=== PATIENT | male | born 1930 | race Asian ===

== ENCOUNTER 2018-07-06 12:49 | Inpatient (IN) | payer OTHER, MEDICAID ==
[~2018-07-06] VITALS: Ht 172.7 cm; Wt 62.6 kg
[~2018-07-06 12:49] MED LIST: ALPR0.25 PO; BISA5TAB10 PO; DOCU100T9 PO; ESOM40CA PO; PSYL3.4P6 PO; SUCR1TAB PO; ZOLP10TA2 PO
[2018-07-06] MEDS ORDERED: NACL 0.9% 1,000 ML IV ONE (12:59)
[2018-07-06] MEDS ORDERED: ONDANSETRON HCL 4 MG/2 ML VIAL IVP ONE (13:00)
[2018-07-06] MEDS ORDERED: MORPHINE 4 MG/ML INJ. SYRINGE IVP ONE (13:00)
[2018-07-06 13:01] VITALS: BP_SYST 100
[2018-07-06 13:32] LABS: BASOPHILS % (AUTO) 0.7 % (0.0-2.0); EOSINOPHILS % (AUTO) 0.7 % (0.0-4.0); HEMATOCRIT 39.9 % (36-54); HEMOGLOBIN 13.3 g/dL (14.0-18.0); LYMPHOCYTES # (AUTO) 1.5 K/uL (1.0-5.5); LYMPHOCYTES % (AUTO) 27.9 % (20.5-51.5); MEAN CORPUSCULAR HEMOGLOBIN 32 pg (27-31); MEAN CORPUSCULAR HGB CONC 33 % (32-36); MEAN CORPUSCULAR VOLUME 95 fL (79.0-98.0); MONOCYTES # (AUTO) 0.4 K/uL (0.0-1.0); MONOCYTES % (AUTO) 8.1 % (1.7-9.3); NEUTROPHILS # (AUTO) 3.3 K/uL (1.8-7.7); NEUTROPHILS % (AUTO) 62.6 % (40.0-70.0); PLATELET COUNT (AUTO) 255 K/uL (130-430); RED BLOOD CELL COUNT(AUTO) 4.22 MIL/uL (4.2-6.2); RED CELL DISTRIBUTION WIDTH 14.3 % (9.0-15.0); WHITE BLOOD COUNT (AUTO) 5.3 K/uL (4.8-10.8)
[2018-07-06 13:44] LABS: ANION GAP 8 (5-15); CALCIUM 8.9 mg/dL (8.4-11.0); CHLORIDE 107 mmol/L (98-107); CREATININE 1.02 mg/dL (0.55-1.30); GLUCOSE 126 mg/dL (70-99); POTASSIUM 4.6 mmol/L (3.5-5.1); SODIUM SERUM 141 mmol/L (136-145); UREA NITROGEN, BLOOD 23 mg/dL (8-21)
--- NOTE | 2018-07-06 13:47 | NUR ---
Placed in room 03 . Placed on groundwater monitoring technician, blood pressure machine and pulse oximeter. To gown for exam. Side rails up.
[2018-07-06 13:48] LABS: INR 0.9 (0.80-1.20); PROTHROMBIN TIME 9.3 SECS (9.5-12.5)
[2018-07-06 13:51] LABS: ALANINE AMINOTRANSFERASE 25 U/L (12-78); ALBUMIN 3.4 g/dL (3.4-4.8); AMYLASE 108 U/L (0-100); ASPARTATE AMINOTRANSFERASE 27 U/L (10-37); LIPASE 261 U/L (73-393); TOTAL BILIRUBIN 0.3 mg/dL (0.0-1.0)
--- NOTE | 2018-07-06 14:00 | NUR ---
PATIENT IN ER BED 3. PATIENTS AND SON AT BEDSIDE. PER SON PATIENT HAD EXTREME PAIN TO THE LOWER RIGHT ABDOMEN AREA LAST NIGHT AND NOW IT HAS BECOME BETTER. PATIENT IS AAOX4. NO ACUTE SIGNS OF DISTRESS. PATIENT LOOKS CONTENT. ALL NEEDS AT THIS TIME. AWAITING FOR URINE SAMPLE.
[2018-07-06 16:13] LABS: BILIRUBIN,URINE NEGATIVE (NEGATIVE); BLOOD, URINE NEGATIVE (NEGATIVE); CLARITY/URINE CLEAR (CLEAR); COLOR,URINE YELLOW (YELLOW); GLUCOSE,URINE NEGATIVE (NEGATIVE); KETONES,URINE NEGATIVE (NEGATIVE); LEUKOCYTE ESTERASE ,URINE NEGATIVE (NEGATIVE); NITRITE, URINE NEGATIVE (NEGATIVE); PROTEIN URINE NEGATIVE (NEGATIVE); UROBILINOGEN,URINE 0.2 (0.2-1.0)
--- NOTE | 2018-07-06 17:05 | NUR ---
PATIENT RESTING IN BED COMFORTABLE. NO ACUTE SIGNS OF DISTRESS. DENIES PAIN AT THIS TIME. CONTINUE TO MONITOR.
[2018-07-06] MEDS ORDERED: cefTRIAXone 1 GM IVPB PREMIX 50 ML IV ONE (17:30)
[2018-07-06] MEDS ORDERED: RANI-362 PO (18:45)
[2018-07-06] MEDS ORDERED: LUBI24CA5 PO (18:46)
[2018-07-06] MEDS ORDERED: METO-290 PO (18:47)
[2018-07-06] MEDS ORDERED: DEXL60CA4 PO (18:48)
[2018-07-06] MEDS ORDERED: PREG75CA PO (18:49)
[2018-07-06] MEDS ORDERED: ZOLP10TA2 PO (18:49)
--- NOTE | 2018-07-06 19:00 | NUR ---
Patient will be admitted to care of dr. mathis. Admitted to med-surg unit. Will go to room 105A. Belongings list completed. Summary report printed. Report will be given at bedside to HILARIA Solano.
--- NOTE | 2018-07-06 19:03 | NUR ---
ADMIT NOTE Received pt from ER to the floor with a diagnosis of pneumonia, pancreatitis. Admission process initiated. patient oriented to pain management, safety and call light-teach back done.
[2018-07-06 19:16] VITALS: BP_SYST 143
[2018-07-06 20:18] VITALS: BP_SYST 135
--- NOTE | 2018-07-06 20:34 | NUR ---
PATIENT AWAKE ALERT assist out of bed to REST ROOM ambulates FALL MEASURES IMPLEMENTED CALL FIELD USE EXPLAINED TEACH BACK METHOD DONE patient verbalize understanding , FAMILY HERE AT THE BEDSIDE assist as needed continue to monitor .
[2018-07-07] MEDS ORDERED: ZOLPIDEM TARTRATE 5 MG TABLET PO PRN
[2018-07-07 00:05] VITALS: BP_SYST 107
[2018-07-07] MEDS ORDERED: ACETAMINOPHEN 325 MG TABLET PO PRN (00:15)
[2018-07-07] MEDS ORDERED: LevALBUTEROL HCL 1.25 MG/0.5 ML *CONC.* VIAL.NEB (XOPENEX CONC.) INH PRN (00:15)
[2018-07-07] MEDS ORDERED: AZITHROMYCIN 500 MG/VIAL (ZITHROMAX) IV ONE (00:41)
[2018-07-07] MEDS ORDERED: KCL 20 mEq in D5/0.45NS 1000mL 1,000 ML IV ONE (00:41)
[2018-07-07] MEDS: KCL 20 mEq in D5/0.45NS 1000mL 1,000 ML IV SCH ×2 (00:54→17:15)
[2018-07-07] MEDS: AZITHROMYCIN 500 MG in NS 250 ML IV SCH ×2 (00:55→23:11)
--- NOTE | 2018-07-07 02:29 | NUR ---
ZITHROMAX 500 MG IVPB ADMINISTER ORDERED NO S/SX OF ADVERSE REACTION NO COMPLAINTS MADE .
--- NOTE | 2018-07-07 02:32 | NUR ---
NEW IV RE START 20 GAUGE RIGHT F/A , TOLERATED .
[2018-07-07 04:19] VITALS: BP_SYST 107
--- NOTE | 2018-07-07 04:26 | NUR ---
PATIENT AWAKE ASSIST OUT OF BED TO REST ROOM FALL MEASURES EFFECTIVE PATIENT AMBULATES WITH ASSIST / .
[2018-07-07] MEDS: METOCLOPRAMIDE HCL 10 MG TABLET PO SCH ×3 (06:10→17:14)
[2018-07-07] MEDS: LevALBUTEROL HCL 1.25 MG/0.5 ML *CONC.* VIAL.NEB (XOPENEX CONC.) INH SCH ×3 (07:19→19:46)
[2018-07-07 08:00] VITALS: BP_SYST 129
--- NOTE | 2018-07-07 08:00 | NUR ---
RN OPENING NOTE PATIENT IS RESTING IN BED, ALERT ORIENTED, DENIES PAIN OR DISCOMFORT. , PATIENT WAS ASSESSED, VITAL SIGNS ARE STABLE. WILL PASS THE MED FOR THE PATIENT. CALL LIGHT WITHIN REACH AND BED AT LOW POSITION.
[2018-07-07] MEDS: SUCRALFATE 1 GM TABLET PO SCH ×2 (09:12→21:21)
[2018-07-07] MEDS: ALPRAZolam 0.25 MG TABLET PO SCH (09:12)
[2018-07-07] MEDS: LUBIPROSTONE 24 MCG CAPSULE PO SCH (09:12)
[2018-07-07] MEDS: BISACODYL 5 MG TABLET.DR (DULCOLAX) PO SCH (09:12)
[2018-07-07] MEDS: PREGABALIN 75 MG CAPSULE (LYRICA) PO SCH ×2 (09:12→21:21)
[2018-07-07] MEDS: FAMOTIDINE 20 MG TABLET PO SCH ×2 (09:12→21:21)
[2018-07-07] MEDS: PSYLLIUM HUSK 1 PKT PACKET PO SCH (09:13)
[2018-07-07] MEDS: DOCUSATE SODIUM 100 MG CAPSULE PO SCH (09:13)
[2018-07-07] MEDS: ENOXAPARIN SODIUM 40 MG/0.4 ML SYRINGE SUBCUT SCH (09:14)
--- NOTE | 2018-07-07 10:00 | NUR ---
RN NOTE PATIENT WAS GIVEN HIS MEDIATIONS. PATIENT TOLERATED VERY WILL , WILL CONTINUE TO MONITOR.
[2018-07-07 11:07] VITALS: BP_SYST 89
--- NOTE | 2018-07-07 12:00 | NUR ---
RN NOTE PATIENT FAMILY IS BY BEDSIDE, PATIENT DENIES PAIN OR DISCOMFORT. PATIENT'S; BLOOD SUGAR WAS MEASURED TO BE. 147MG/DL PATIENT GOT NO COVERAGE. PATIENT AND FAMILY WERE EDUCATED ABOUT FALL PREVENTION. FAMILY MEMBERS AND PATIENT WAS EDUCATED ABOUT THE DISEASE PROCESS. THEY VERBALIZED UNDERSTANDING. WILL CONTINUE TO MONITOR.
--- NOTE | 2018-07-07 14:00 | NUR ---
RN NOTE PATIENT IS RESTING IN BED, SLEEPING WILL CONTINUE TO MONITOR.
[2018-07-07 16:00] VITALS: BP_SYST 131
--- NOTE | 2018-07-07 16:00 | NUR ---
RN NOTE PATIENT IS RESTING IN BED, PATIENT WAS HELPED TO THE BATHROOM WHERE HE VOIDED, PATIENT DENIES PAIN OR DISCOMFORT. WILL CONTINUE TO MONITOR.
[2018-07-07] MEDS: cefTRIAXone 1 GM in D5W 50 ML IV SCH (17:16)
--- NOTE | 2018-07-07 18:36 | NUR ---
RN CLOSING NOTE PATIENT IS RESTING IN BED, WAS SERVED HIS DINNER AND HELPED AMBULATED TO THE BATHROOM, PATIENT IS CURRENTLY EATING HIS DINNER, DENIES PAIN OR DISCOMFORT, BED AT LOW POSITION, CALL LIGHT WITHIN REACH, BED ALARM IS ON, WILL ENDORSE TO NEXT SHIFT.
[2018-07-07 19:56] VITALS: BP_SYST 136
--- NOTE | 2018-07-07 20:02 | NUR ---
PATIENT AWAKE ALERT sitting up in bed assist encourage position change on room air 02 SAT 96 % skin dry warm chest movement symmetrical bed to low position / .
[2018-07-07] MEDS ORDERED: ZOLPIDEM TARTRATE 5 MG TABLET PO SCH (21:00)
--- NOTE | 2018-07-07 21:59 | NUR ---
LYRICA 75 MG PO administer for NERVE pain as ordered , HISTORY of NEUROPATHY .
--- NOTE | 2018-07-07 22:04 | NUR ---
AMBIEN 10 MG PO administer for sleep aide per patient Request , patient resting .
--- NOTE | 2018-07-08 00:38 | NUR ---
PATIENT AWAKE ASSIST OUT OF BED TO REST ROOM ambulates with assist fall measures implemented no SOB noted .
[2018-07-08 00:42] VITALS: BP_SYST 115
[2018-07-08] MEDS: METOCLOPRAMIDE HCL 10 MG TABLET PO SCH ×3 (06:07→17:00)
[2018-07-08 06:25] LABS: BASOPHILS % (AUTO) 0.4 % (0.0-2.0); EOSINOPHILS # (AUTO) 0.1 K/uL (0.0-0.4); HEMATOCRIT 35.1 % (36-54); HEMOGLOBIN 11.6 g/dL (14.0-18.0); LYMPHOCYTES # (AUTO) 1.5 K/uL (1.0-5.5); LYMPHOCYTES % (AUTO) 35.1 % (20.5-51.5); MEAN CORPUSCULAR HEMOGLOBIN 31 pg (27-31); MEAN CORPUSCULAR HGB CONC 33 % (32-36); MEAN CORPUSCULAR VOLUME 95 fL (79.0-98.0); MONOCYTES # (AUTO) 0.6 K/uL (0.0-1.0); MONOCYTES % (AUTO) 13.7 % (1.7-9.3); NEUTROPHILS # (AUTO) 2.1 K/uL (1.8-7.7); NEUTROPHILS % (AUTO) 48.8 % (40.0-70.0); PLATELET COUNT (AUTO) 216 K/uL (130-430); RED BLOOD CELL COUNT(AUTO) 3.72 MIL/uL (4.2-6.2); RED CELL DISTRIBUTION WIDTH 13.8 % (9.0-15.0); WHITE BLOOD COUNT (AUTO) 4.3 K/uL (4.8-10.8)
[2018-07-08 06:27] LABS: AMYLASE 135 U/L (0-100); ANION GAP 4 (5-15); CALCIUM 9.2 mg/dL (8.4-11.0); CHLORIDE 111 mmol/L (98-107); GLUCOSE 105 mg/dL (70-99); POTASSIUM 4.5 mmol/L (3.5-5.1); SODIUM SERUM 146 mmol/L (136-145); UREA NITROGEN, BLOOD 14 mg/dL (8-21)
[2018-07-08 07:04] LABS: LIPASE 417 U/L (73-393)
--- NOTE | 2018-07-08 07:27 | NUR ---
Opening Note patient resting in bed, eyes closed, breathing unlabored and symmetrical, IV fluids infusing, no signs of distress, safety precautions in place, call light and bedside table left within reach, room close to station, will continue to monitor
[2018-07-08] MEDS: LevALBUTEROL HCL 1.25 MG/0.5 ML *CONC.* VIAL.NEB (XOPENEX CONC.) INH SCH ×2 (07:38→22:47)
[2018-07-08 08:05] VITALS: BP_SYST 124
[2018-07-08] MEDS: LUBIPROSTONE 24 MCG CAPSULE PO SCH (08:31)
[2018-07-08] MEDS: BISACODYL 5 MG TABLET.DR (DULCOLAX) PO SCH (08:31)
[2018-07-08] MEDS: ALPRAZolam 0.25 MG TABLET PO SCH (08:31)
[2018-07-08] MEDS: PREGABALIN 75 MG CAPSULE (LYRICA) PO SCH ×2 (08:31→21:06)
[2018-07-08] MEDS: FAMOTIDINE 20 MG TABLET PO SCH ×2 (08:31→21:06)
[2018-07-08] MEDS: SUCRALFATE 1 GM TABLET PO SCH ×2 (08:31→21:06)
[2018-07-08] MEDS: DOCUSATE SODIUM 100 MG CAPSULE PO SCH (08:32)
[2018-07-08] MEDS: ENOXAPARIN SODIUM 40 MG/0.4 ML SYRINGE SUBCUT SCH (08:33)
--- NOTE | 2018-07-08 08:35 | NUR ---
Medication educated patient regarding meds, verbalized understanding, tolerated well by mouth, complaining of mild pain on abdomen, educated him on tylenol for pain management, verbalized understanding, does not want pain meds at this time, educated patient on use of call light for assistance, verbalized understanding, call light and bedside table left within reach, will continue to monitor
[2018-07-08] MEDS: PSYLLIUM HUSK 1 PKT PACKET PO SCH (08:37)
[2018-07-08] MEDS: KCL 20 mEq in D5/0.45NS 1000mL 1,000 ML IV SCH ×2 (10:20→14:01)
--- NOTE | 2018-07-08 10:30 | NUR ---
Ge Chacko at Bedside educated him on plan of care, verbalized understanding, retrieved phone number and will ask Dr. Ellsworth to call him with updates, patient resting in bed, will continue to monitor
[2018-07-08 12:02] VITALS: BP_SYST 108
--- NOTE | 2018-07-08 12:05 | NUR ---
Patient Ambulates to Restroom steady gait with IV pole, educated him on safety, verbalized understanding, educated patient on use of call light for assistance, verbalized understanding, call light and bedside table left within reach, will continue to monitor
--- NOTE | 2018-07-08 14:02 | NUR ---
IV Fluids Hung at this time, patient resting in bed at this time, IV site remains patent, he is resting in bed, no signs of distress, safety precautions remain in place, call light and bedside table left within reach, will continue to monitor
--- NOTE | 2018-07-08 15:12 | NUR ---
Dr. Ellsworth Rounded examined patient, informed him patient complaining of abdominal pain near umbilicus, MD verbalized understanding and examined patietn, requested for him to call patient's family to update them regarding plan of care, MD verbalized understanding.
--- NOTE | 2018-07-08 15:54 | NUR ---
CONSULTATION PAGED REASON FOR CONSULTATION:ABDOMINAL PAIN WAS CONSULT CALLED?Y PERSON WHO WAS NOTIFIED:BIB CONSULTING PHYSICIAN:KELLY DAVILA ( AQUARIUM SPECIALIST) SLOOP CAPTAIN SPECIALTY:GI SLOOP CAPTAIN PHONE NUMBER:[phone] REQUESTING PHYSICIAN:BRIAN LAWRENCE
--- NOTE | 2018-07-08 16:00 | NUR ---
Spoke with Son Jarret updated him on plan of care, verbalized understanding, informed him patient requesting diapers from home, educated him that we are a diaper free facility, verbalized understanding, stated brother should be by to see patient later
[2018-07-08 16:02] VITALS: BP_SYST 131
--- NOTE | 2018-07-08 16:28 | NUR ---
CM Mgt: CM attempted to speak with patient at bedside to for dc planning assessment. however, patient only speaks welsh. Contacted patient's son ( Ricco Woodward) @ . however, refuse to talk to cm at this time as he is currently driving. Informed CM he will call back. CM to call back tomorrow to discuss dc planning.
[2018-07-08] MEDS: cefTRIAXone 1 GM in D5W 50 ML IV SCH (18:52)
--- NOTE | 2018-07-08 18:56 | NUR ---
Closing Note patient resting in bed, antibiotics hung at this time, IV site remains patent, patient had a bowel movement, no other needs at this time, educated patient on use of call light for assistance, verbalized understanding, call light and bedside table left within reach, will endorse to night clerk nurse
--- NOTE | 2018-07-08 19:40 | NUR ---
Initial Note Received patient awake, alert, oriented but ukrainian speaking only. Ambulates well with steady gait. No SOB noted and denies any pain or n/v at this time. IVF infusing. NPO at this time. Awaiting for US Abdomen to be done. Son Brandon at the bedside. Explained what needs to be done and why patient had abdominal discomfort/gurgling sound on stomach prior to transfer here. Patient had a BM due to laxatives and stool softeners given in ER. Son brought some pullups for the patient. He will get some newspapers and he will be back. VS taken and stable. Care and monitoring will be provided. Call light within reach. Bed alarm off per patient and son requested. Bed at lowest position at all times. Needs attended. Kept warm and comfortable.
[2018-07-08 20:00] VITALS: BP_SYST 142
--- NOTE | 2018-07-08 20:09 | NUR ---
Abdominal US Radiologist arrived for US of the Abdomen, tolerated well.
--- NOTE | 2018-07-08 22:00 | NUR ---
RN Note Patient ambulated to the bathroom several times with steady gait and non skid socks. No other complaints. Hearing aid at the bedside in the denture cup with his name on it. Kept warm and comfortable.
[2018-07-08] MEDS: AZITHROMYCIN 500 MG in NS 250 ML IV SCH (23:28)
[2018-07-08 23:39] VITALS: BP_SYST 108
--- NOTE | 2018-07-09 00:30 | NUR ---
RN Note Sleeping at this time. No SOB or grimacing noted. IVF infusing.
--- NOTE | 2018-07-09 02:30 | NUR ---
RN Note Asleep, moves occasionally. Repositions by himself. IVF infusing. No distress noted.
--- NOTE | 2018-07-09 04:10 | NUR ---
RN Note Patient ambulated to the bathroom and back to bed with steady gait. No complaints at this time. IVF infusing. Kept warm and comfortable.
[2018-07-09] MEDS: METOCLOPRAMIDE HCL 10 MG TABLET PO SCH ×3 (05:55→16:14)
[2018-07-09] MEDS ORDERED: HYDC2.5% TP (06:06)
--- NOTE | 2018-07-09 06:13 | NUR ---
End Note Afebrile. VS stable. No complain of pain, SOB or n/v throughout the night. Able to sleep. Ambulates to the bathroom and back to bed with steady gait. Self turn. IVF infusing. AM labs today. lodging facilities manager on the case. Fall and bleeding precautions observed. Care and monitoring provided per protocol. Call light within reach. Bed alarm off per patient's request. Bed at lowest position at all times. Needs attended. Kept warm and comfortable.
[2018-07-09 06:28] LABS: BASOPHILS % (AUTO) 0.8 % (0.0-2.0); EOSINOPHILS # (AUTO) 0.1 K/uL (0.0-0.4); EOSINOPHILS % (AUTO) 2.6 % (0.0-4.0); HEMATOCRIT 34.4 % (36-54); HEMOGLOBIN 11.5 g/dL (14.0-18.0); LYMPHOCYTES # (AUTO) 1.4 K/uL (1.0-5.5); LYMPHOCYTES % (AUTO) 30.5 % (20.5-51.5); MEAN CORPUSCULAR HEMOGLOBIN 31 pg (27-31); MEAN CORPUSCULAR HGB CONC 33 % (32-36); MEAN CORPUSCULAR VOLUME 94 fL (79.0-98.0); MONOCYTES # (AUTO) 0.6 K/uL (0.0-1.0); MONOCYTES % (AUTO) 13.6 % (1.7-9.3); NEUTROPHILS # (AUTO) 2.3 K/uL (1.8-7.7); NEUTROPHILS % (AUTO) 52.5 % (40.0-70.0); PLATELET COUNT (AUTO) 207 K/uL (130-430); RED BLOOD CELL COUNT(AUTO) 3.65 MIL/uL (4.2-6.2); RED CELL DISTRIBUTION WIDTH 14.3 % (9.0-15.0); WHITE BLOOD COUNT (AUTO) 4.4 K/uL (4.8-10.8)
[2018-07-09 06:41] LABS: AMYLASE 126 U/L (0-100); ANION GAP 4 (5-15); CALCIUM 9.4 mg/dL (8.4-11.0); CHLORIDE 108 mmol/L (98-107); CREATININE 1.02 mg/dL (0.55-1.30); GLUCOSE 98 mg/dL (70-99); LIPASE 328 U/L (73-393); POTASSIUM 4.8 mmol/L (3.5-5.1); SODIUM SERUM 143 mmol/L (136-145); UREA NITROGEN, BLOOD 12 mg/dL (8-21)
--- NOTE | 2018-07-09 07:33 | NUR ---
Opening Note received bedside SBAR report from mold shifter RN, patient resting in bed, respirations even and unlabored, no acute distress noted, patient educated on use of call light and asked to call for assistance, patient verbalized understanding, call light in reach, bed in low and locked position, bed alarm on.
[2018-07-09 08:00] VITALS: BP_SYST 122
[2018-07-09] MEDS: LevALBUTEROL HCL 1.25 MG/0.5 ML *CONC.* VIAL.NEB (XOPENEX CONC.) INH SCH ×2 (08:47→15:38)
[2018-07-09] MEDS: POLYETHYLENE GLYCOL 3350, 17 GM/ POWD.PACK PO SCH ×2 (09:00→09:53)
[2018-07-09] MEDS: DOCUSATE SODIUM 100 MG CAPSULE PO SCH ×2 (09:00→09:53)
[2018-07-09] MEDS: BISACODYL 5 MG TABLET.DR (DULCOLAX) PO SCH ×2 (09:00→09:53)
[2018-07-09] MEDS: PSYLLIUM HUSK 1 PKT PACKET PO SCH ×2 (09:00→09:53)
--- NOTE | 2018-07-09 09:40 | NUR ---
Ambulated patient ambulated to bathroom, steady gait noted, patient had BM x1, voided x1, patient ambulated back to bed, patient resting in bed, no acute distress noted.
[2018-07-09] MEDS: ALPRAZolam 0.25 MG TABLET PO SCH (09:53)
[2018-07-09] MEDS: PREGABALIN 75 MG CAPSULE (LYRICA) PO SCH (09:53)
[2018-07-09] MEDS: LUBIPROSTONE 24 MCG CAPSULE PO SCH (09:53)
[2018-07-09] MEDS: FAMOTIDINE 20 MG TABLET PO SCH (09:53)
[2018-07-09] MEDS: SUCRALFATE 1 GM TABLET PO SCH (09:54)
[2018-07-09] MEDS: ENOXAPARIN SODIUM 40 MG/0.4 ML SYRINGE SUBCUT SCH (09:55)
[2018-07-09] MEDS: MINERAL OIL 133 ML ENEMA RC ONE ×2 (09:56→10:09)
--- NOTE | 2018-07-09 11:47 | NUR ---
Sitting in bedside chair patient sitting in bedside chair, no acute distress noted, call light in reach, no additional needs at this time.
[2018-07-09 12:00] VITALS: BP_SYST 112
--- NOTE | 2018-07-09 13:01 | NUR ---
RN Rounds patient resting in bed, patient denies any pain, respirations even and unlabored, no acute distress noted.
--- NOTE | 2018-07-09 15:13 | NUR ---
RN Rounds patient sleeping in bed, respirations even and unlabored on room air, no acute distress noted.
[2018-07-09 16:22] VITALS: BP_SYST 113
[2018-07-09] MEDS: cefTRIAXone 1 GM in D5W 50 ML IV SCH (17:08)
--- NOTE | 2018-07-09 17:51 | NUR ---
Ambulate to bathroom patient ambulated to bathroom, steady gait noted, voided x1, patient resting in bed, no additional needs at this time.
--- NOTE | 2018-07-09 18:33 | NUR ---
Spoke with Patients Son spoke with patients son Jarret, informed him of orders to discharge home, understanding verbalized, per Jarret he will be here around 1930 for pick-up.
[2018-07-09] MEDS ORDERED: POLY17PO4 PO (18:37)
[2018-07-09 18:51] VITALS: BP_SYST 137
--- NOTE | 2018-07-09 19:20 | NUR ---
Closing Note gave bedside SBAR report to receiving RN, patient resting in bed, no acute distress noted, awaiting son for D/C home, patient educated on use of call light and asked to call for assistance, patient verbalized understanding, call light in reach, patient educated on use of bed alarm for patient safety, patient refusing bed alarm, bed in low and locked position, care endorsed to night custodian RN.
--- NOTE | 2018-07-09 19:30 | NUR ---
Opening notes Received report. Patient resting comfortably in bed. No signs of distress noted. Breathing is even and unlabored. No needs at this time. Awaiting son to fish bait picker for discharge. Call light with the patient. Safety precautions in place.
--- NOTE | 2018-07-09 19:45 | NUR ---
D/C Patient Patient given medication reconciliation form and D/C instructions. Exit Care provided. Patient verbalized understanding. MD discussed with patient the results and treatment provided. Ambulatory with steady gait for discharge to home. Patient in stable condition, ID band removed. IV catheter removed, intact and dressing applied, no active bleeding. Rx of Miralax given. Patient educated on pain management. All belongings sent with patient.
--- NOTE | 2018-07-18 09:57 | NUR ---
Discharge Follow Up Phone Call EVENTS ADMINISTRATIVE ASSISTANT phoned patient, , but no one spoke Icelandic. EVENTS ADMINISTRATIVE ASSISTANT phoned patient's son, Jarret, , on 07/11/18, , and 07/18/18 and left voicemail messages with reminder to make follow up appointment, offer of assistance, and Social Service contact information. No further calls will be made.
== END 2018-07-09 19:45 | disposition home or self-care (01) | DRG 177 ==
LOC: SED 12:49 → SMU 17:35
PROVIDERS: ADMIT Family Medicine; ATTEND Family Medicine
DX: J15.6 Pneumonia due to other Gram-negative bacteria (principal); K85.90 Acute pancreatitis without necrosis or infection, unspecified; K21.9 Gastro-esophageal reflux disease without esophagitis; K31.89 Other diseases of stomach and duodenum; K76.89 Other specified diseases of liver; K59.09 Other constipation; Z66 Do not resuscitate; M19.90 Unspecified osteoarthritis, unspecified site; Z79.899 Other long term (current) drug therapy
CPT/HCPCS: 36415; 71045; 76700-TC; 80048; 80053; 81003; 82150-TC; 82550-TC; 82962; 83605; 83690-TC; 83735-TC; 84484; 85025; 85610-TC; 85730-TC; 87040-TC; 93005; 94640; 94760; 96374; 96375; 99285; J0456; J0696; J1650; J2270; J2405; J7030; J7050; J7060; J7612; J8597